=== PATIENT | female | born 1960 | race African-American/Black ===

== ENCOUNTER 2021-09-03 14:24 | Emergency (ER) | payer OTHER ==
[2021-09-03 14:57] VITALS: BP 157/71; PULSE 61; TEMP 98; BMI 30.6
[2021-09-03] MEDS ORDERED: ACETAMINOPHEN 500 MG TABLET (FP) PO ONE (15:06)
[2021-09-03] MEDS ORDERED: ACETAMINOPHEN 325 MG TABLET (FP) ONE (15:06)
[2021-09-03] MEDS ORDERED: IBUPROFEN 600 MG TABLET (FP) PO ONE ×2 (16:02→17:48)
== END 2021-09-03 18:25 ==
LOC: JER 14:24
DX: S46.911A Strain of unspecified muscle, fascia and tendon at shoulder and upper arm level, right arm, initial encounter (principal); V43.62XA Car passenger injured in collision with other type car in traffic accident, initial encounter
CPT/HCPCS: 70450-TC; 71046-TC-FY; 72125-TC; 72128-TC; 72131-TC; 73030-TC-RT-FY; 99285-25

== ENCOUNTER 2021-12-07 20:51 | Observation (INO) | payer OTHER ==
[2021-12-07 22:11] LABS: EPI CELLS 20 /uL (0-25.1); HYALINE CASTS 1 /uL (0-3.1); URINE APPEARANCE TURBID; URINE BACTERIA 2707 /uL (0-1359); URINE BILIRUBIN NEGATIVE (NEGATIVE); URINE COLOR YELLOW; URINE GLUCOSE (UA) NEGATIVE (NEGATIVE); URINE KETONE TRACE (NEGATIVE); URINE LEUK ESTERASE 3+ (NEGATIVE); URINE NITRITE NEGATIVE (NEGATIVE); URINE PROTEIN 2+ (NEGATIVE); URINE RBC 549 /uL (0-23.9); URINE UROBILINOGEN 0.2 mg/dL (0.2-1.0); URINE WBC 10656 /uL (0-25.8)
[2021-12-07] MEDS ORDERED: LACTATED RINGERS SOLUTION 1000 ML INFUS.BAG IV ONE (22:30)
[2021-12-07] MEDS ORDERED: CEFTRIAXONE 1 GM in DEXTROSE 5%-WATER - 100 ML IVPB ONE (22:31)
[2021-12-07] MEDS ORDERED: CEFTRIAXONE 1 GM/50 ML BAG ONE (22:43)
[2021-12-07 23:16] LABS: BASO % 0.7 % (0-2.0); EOS % 3.1 % (0-4.5); HEMOGLOBIN 10.4 GM/dL (10.7-15.3); LYMPH % 14.1 % (8-40); MCH 28.3 pg (25.7-33.7); MCHC 32.5 g/dl (32.0-36.0); MEAN CELL VOLUME 87.1 fl (80-96); MEAN PLT VOLUME 8.4 fl (7.5-11.1); NEUT % 74.1 % (42.8-82.8); PLATELET COUNT 298 10^3/uL (134-434); RBC 3.68 M/mm3 (3.60-5.2); RDW 17.5 % (11.6-15.6); WHITE BLOOD COUNT 9.1 K/mm3 (4.0-10.0)
[2021-12-07 23:40] LABS: CALCIUM 8.3 mg/dL (8.5-10.1)
[2021-12-07 23:41] LABS: ALBUMIN 2.7 g/dl (3.4-5.0); BLOOD UREA NITROGEN 19.4 mg/dL (7-18); INR 1.09 (0.83-1.09); PROTHROMBIN TIME (PATIENT) 12.5 SEC (9.7-13.0)
[2021-12-07 23:44] LABS: ACTIVATED PTT 27.4 SECONDS (25.2-36.5); CREATININE 0.8 mg/dL (0.55-1.3)
[2021-12-07 23:46] LABS: BILIRUBIN,TOTAL 0.2 mg/dL (0.2-1); TOT PROT 6.6 g/dl (6.4-8.2)
[2021-12-08 07:36] LABS: BASO % 0.6 % (0-2.0); EOS % 3.8 % (0-4.5); HEMATOCRIT 35.4 % (32.4-45.2); HEMOGLOBIN 11.4 GM/dL (10.7-15.3); LYMPH % 14.4 % (8-40); MCH 27.8 pg (25.7-33.7); MCHC 32.1 g/dl (32.0-36.0); MEAN CELL VOLUME 86.4 fl (80-96); MEAN PLT VOLUME 8.8 fl (7.5-11.1); MONO % 8.9 % (3.8-10.2); NEUT % 72.3 % (42.8-82.8); PLATELET COUNT 329 10^3/uL (134-434); RDW 17.5 % (11.6-15.6); WHITE BLOOD COUNT 8.6 K/mm3 (4.0-10.0)
[2021-12-08 08:33] LABS: BLOOD UREA NITROGEN 17.9 mg/dL (7-18); CALCIUM 9.2 mg/dL (8.5-10.1); CREATININE 0.9 mg/dL (0.55-1.3)
[2021-12-08] MEDS ORDERED: IBUPROFEN 400 MG TABLET (FP) PO PRN (09:32)
[2021-12-08] MEDS ORDERED: BISACODYL 10 MG SUPP.RECT PR PRN (09:34)
[2021-12-08] MEDS ORDERED: CEFTRIAXONE 1 GM/50 ML BAG ONE (10:27)
[2021-12-08] MEDS ORDERED: POLYETHYLENE GLYCOL (HEALTHYLAX) 3350 17 GM PACKET ONE (10:27)
[2021-12-08] MEDS ORDERED: ACETAMINOPHEN 325 MG TABLET (FP) ONE (11:12)
[2021-12-08] MEDS: POLYETHYLENE GLYCOL (HEALTHYLAX) 3350 17 GM PACKET PO SCH ×2 (11:14→21:10)
[2021-12-08] MEDS: CEFTRIAXONE 1 GM in DEXTROSE 5%-WATER - 50 ML IVPB SCH (11:14)
[2021-12-08] MEDS: ACETAMINOPHEN 325 MG TABLET (FP) PO PRN ×2 (11:15→21:11)
[2021-12-08] MEDS: VERAPAMIL HCL 240 MG E.R. TABLET PO SCH (11:15)
[2021-12-08 21:00] VITALS: BMI 30.5
[2021-12-09] MEDS: POLYETHYLENE GLYCOL (HEALTHYLAX) 3350 17 GM PACKET PO SCH (09:35)
[2021-12-09] MEDS: CEFTRIAXONE 1 GM in DEXTROSE 5%-WATER - 50 ML IVPB SCH (09:36)
[2021-12-09] MEDS: VERAPAMIL HCL 240 MG E.R. TABLET PO SCH (09:36)
[2021-12-09] MEDS: ACETAMINOPHEN 325 MG TABLET (FP) PO PRN (09:42)
[2021-12-09] MEDS ORDERED: MINERAL OIL ENEMA 133 ML ENEMA RC ONE (09:48)
[2021-12-09 15:12] VITALS: BP 116/65; PULSE 82; RESP 18; TEMP 98.9
== END 2021-12-09 16:15 | disposition home or self-care (01) ==
LOC: JER 20:51 → JERBED 12-08 01:41 → J7W 12-08 18:24
PROVIDERS: ADMIT Internal Medicine; ATTEND Internal Medicine
PROC: 3E03329 Introduction of Other Anti-infective into Peripheral Vein, Percutaneous Approach (ICD-10-PCS; principal; 2021-12-08)
PROC: 3E0337Z Introduction of Electrolytic and Water Balance Substance into Peripheral Vein, Percutaneous Approach (ICD-10-PCS; 2021-12-08)
DX: M77.9 Enthesopathy, unspecified (principal); I10 Essential (primary) hypertension; D21.9 Benign neoplasm of connective and other soft tissue, unspecified; N39.0 Urinary tract infection, site not specified; Z87.891 Personal history of nicotine dependence; Z88.0 Allergy status to penicillin
CPT/HCPCS: 36415; 74177-TC; 76830-TC; 80048; 80053; 81003; 82272; 83690; 85025; 85610; 85730; 86850; 86900; 86901; 87081; 87086; 87186; 93005; 93010; 96361; 96365; 96366; 99285-25; C9803-CS; G0378; Q9967; U0003; U0005

== ENCOUNTER 2022-05-16 04:37 | Day surgery (SDC) | payer OTHER ==
[2022-05-11 15:30] VITALS: BMI 30.3
[2022-05-16 08:40] VITALS: TEMP 97.5
[2022-05-16 11:47] VITALS: BP 107/66; PULSE 61; RESP 19
== END 2022-05-16 09:20 | disposition home or self-care (01) ==
LOC: JASU-ENDO 04:37
PROVIDERS: ATTEND Internal Medicine Gastroenterology
PROC: 0DBN8ZX Excision of Sigmoid Colon, Via Natural or Artificial Opening Endoscopic, Diagnostic (ICD-10-PCS; 2022-05-16)
PROC: 0DBM8ZX Excision of Descending Colon, Via Natural or Artificial Opening Endoscopic, Diagnostic (ICD-10-PCS; principal; 2022-05-16 08:00)
DX: K52.9 Noninfective gastroenteritis and colitis, unspecified (principal); K63.5 Polyp of colon; K64.8 Other hemorrhoids; K57.30 Diverticulosis of large intestine without perforation or abscess without bleeding; I10 Essential (primary) hypertension
CPT/HCPCS: 88305-TC

== ENCOUNTER 2023-07-09 04:46 | Day surgery (SDC) | payer OTHER ==
[2023-07-06 11:10] VITALS: BMI 30.9
[2023-07-09 10:57] VITALS: TEMP 98.2
[2023-07-09 11:05] VITALS: PULSE 59
[2023-07-09 11:20] VITALS: BP 122/95; RESP 12
== END 2023-07-09 11:42 | disposition home or self-care (01) ==
LOC: JASU-ENDO 04:46
PROVIDERS: ATTEND Internal Medicine Gastroenterology
PROC: 0DBN8ZX Excision of Sigmoid Colon, Via Natural or Artificial Opening Endoscopic, Diagnostic (ICD-10-PCS; 2023-07-09)
PROC: 0DBP8ZX Excision of Rectum, Via Natural or Artificial Opening Endoscopic, Diagnostic (ICD-10-PCS; principal; 2023-07-09 09:45)
DX: K52.89 Other specified noninfective gastroenteritis and colitis (principal); D12.8 Benign neoplasm of rectum; K64.8 Other hemorrhoids; K57.30 Diverticulosis of large intestine without perforation or abscess without bleeding; I10 Essential (primary) hypertension
CPT/HCPCS: 88305-TC

== ENCOUNTER 2023-12-10 05:06 | Day surgery (SDC) | payer OTHER ==
[2023-12-06 10:52] VITALS: BMI 30.8
[2023-12-10 09:21] VITALS: TEMP 98
[2023-12-10 09:45] VITALS: RESP 19
[2023-12-10 09:51] VITALS: BP 115/78; PULSE 71
== END 2023-12-10 09:58 | disposition home or self-care (01) ==
LOC: JASU-ENDO 05:06
PROVIDERS: ATTEND Internal Medicine Gastroenterology
PROC: 0DB78ZX Excision of Stomach, Pylorus, Via Natural or Artificial Opening Endoscopic, Diagnostic (ICD-10-PCS; 2023-12-10)
PROC: 0DB68ZX Excision of Stomach, Via Natural or Artificial Opening Endoscopic, Diagnostic (ICD-10-PCS; 2023-12-10)
PROC: 0DB98ZX Excision of Duodenum, Via Natural or Artificial Opening Endoscopic, Diagnostic (ICD-10-PCS; principal; 2023-12-10 08:45)
DX: K29.50 Unspecified chronic gastritis without bleeding (principal); K29.80 Duodenitis without bleeding
CPT/HCPCS: 88305-TC; 88342-TC